=== PATIENT | female | born 1995 | race Caucasian/White ===

== ENCOUNTER 2016-10-06 00:11 | Emergency (ER) | payer BC ==
--- NOTE | 2016-10-06 19:09 | ER ---
ADMIT: 10/06/2016 RM/LOC: ER [facility] MR#: [id number] [id number] MANUELA RAMIRES [address] [place] [address] Emergency Room Report SEX: F AGE: 20 : 1995 DATE: 10/06/2016 HISTORY OF PRESENT ILLNESS: The patient is a 20-year-old female with past medical history of anxiety disorder and depression and gastroesophageal reflux disease, came to the ER with chief complaint of 30 minutes of retrosternal heartburn and chest discomfort, which is aching and it started after the patient ate candy. The patient drank water after that without difficulty. The patient denies any nausea or vomiting, and states right now, she is more anxious than before. The patient denies any shortness of breath. PHYSICAL EXAMINATION: VITAL SIGNS: Stable. GENERAL: The patient was in mild distress. The patient was anxious. HEENT/NECK: Normal. Trachea midline. LUNGS: Bilateral equal breath sounds. CHEST: No tenderness on the chest. HEART: Normal heart sounds without any murmur. ABDOMEN: Soft. The rest of the physical exam was noncontributory and negative. EMERGENCY ROOM COURSE: The patient received Ativan 1 mg p.o. The patient also received GI cocktail, 30 mL p.o. Chest x-ray was negative for any acute changes or abnormalities. The patient states anxiety and also the chest discomfort were completely resolved. The patient is stable to be discharged to home to be followed by the primary doctor as needed. Francois Salazar MD/ nhung JOB #: [id number] CC: Francois Salazar MD, Attending Physician Jarvis Gates MD, Family Physician
== END 2016-10-06 01:24 | disposition home or self-care (01) ==
LOC: ER 00:11
DX: R07.89 Other chest pain (principal); F41.9 Anxiety disorder, unspecified; Z79.899 Other long term (current) drug therapy